=== PATIENT | male | born 1985 | race African-American/Black ===

== ENCOUNTER 2017-10-22 13:00 | Emergency (ER) | payer SELFPAY ==
[2017-10-22 13:18] VITALS: BP 140/90; PULSE 83; TEMP 98; BMI 26.4
[2017-10-22] MEDS ORDERED: ONDANSETRON 4 MG/2 ML VIAL IVPUSH ONE (13:50)
[2017-10-22] MEDS ORDERED: ACETAMINOPHEN 1000 MG/100 ML VIAL (NON FORMULARY) IVPB ONE (13:51)
[2017-10-22] MEDS ORDERED: FAMOTIDINE IV 20 MG/12 ML VIAL IVPB ONE (13:53)
--- NOTE | 2017-10-22 13:56 | PDOC ---
Attending Attestation - Resident Resident Name: Mary BethMando - HPI HPI: 10/22/17 14:15 Pt presents to the ED complaining of a one day history of nausea and vomiting. History of DM, HTN, ESRD on HD. Last HD was Sunday. Also complaining of vomiting with coffee grounds. Denies change in bowel movements. Pain is "like a ball" located between the chest and epigastrium. Denies fever, shortness of breath, passing out. - Physicial Exam PE: 10/22/17 14:23 Agree with resident exam. patient has diffuse tendernes in the abdomen to deep palpation. - Medical Decision Making 10/22/17 14:27 Pt presents to the ED complaining of diffuse chest and abdominal pain. Differential includes ACS, DKA, pancreatitis or biliary disease, gastroparesis, bleeding ulcer. Will check labs, EKG and CXR. Will check CT abdomen without contrast.
--- NOTE | 2017-10-22 14:05 | PDOC ---
History of Present Illness - General Chief Complaint: Vomiting Blood Stated Complaint: CHEST PAIN, VOMITING BLOOD Time Seen by Provider: 10/22/17 13:32 History Source: Patient Exam Limitations: No Limitations - History of Present Illness Initial Comments: 10/22/17 14:00 Patient is a 32M with history of ESRD (MWF, last dialysis F, due in 3.5 hours), IDDM, HTN, toe amputation here today complaining of chest pain, abdominal pain, and blood in his vomit. He states that this morning he had epigastric abdominal pain and chest pain first, then vomited several times. He states that he had a small amount of bright red blood and "balls of coffee ground emesis". Patient endorses chills, shortness of breath. He describes his chest pain as a stabbing pain with associated shortness of breath. He denies fevers, chills. Endorses headache. Denies sick contacts. Past History - Past Medical History Allergies/Adverse Reactions: Allergies Allergy/AdvReac Type Severity Reaction Status Date / Time No Known Allergies Allergy Verified 10/22/17 13:17 Home Medications: Ambulatory Orders Amlodipine Besylate [Norvasc -] 5 mg PO DAILY 10/22/17 Cholecalciferol (Vitamin D3) [Vitamin D3 -] 0 unit PO DAILY 10/22/17 Hydromorphone HCl [Dilaudid] 6 mg PO ASDIR 10/22/17 Insulin Lispro [Humalog] 0 unit SQ ASDIR 10/22/17 Lisinopril [Prinivil -] 40 mg PO DAILY 10/22/17 COPD: No Dialysis: Yes (mo, we,fr) HTN: Yes - Immunization History Immunization Up to Date: Yes - Suicide/Smoking/Psychosocial Hx Smoking History: Never smoked Hx Alcohol Use: No Drug/Substance Use Hx: No Review of Systems - Review of Systems Comments:: 10/22/17 15:26 GENERAL/CONSTITUTIONAL: No fever or chills. No weakness. HEAD, EYES, EARS, NOSE AND THROAT: No change in vision. No sore throat. CARDIOVASCULAR: Positive for chest pain and shortness of breath RESPIRATORY: No cough, wheezing, or hemoptysis. GASTROINTESTINAL: Positive for nausea, vomiting. GENITOURINARY: No dysuria, frequency, or change in urination. MUSCULOSKELETAL: No joint or muscle swelling or pain. No neck or back pain. SKIN: No rash NEUROLOGIC: Positive for headache. Negative for vertigo, loss of consciousness, or change in strength/sensation. HEMATOLOGIC/LYMPHATIC: No anemia, easy bleeding, or history of blood clots. ALLERGIC/IMMUNOLOGIC: No hives or skin allergy. *Physical Exam - Vital Signs Last Vital Signs Temp Pulse Resp BP Pulse Ox 98.0 F 83 20 140/90 100 10/22/17 13:14 10/22/17 13:14 10/22/17 13:14 10/22/17 13:14 10/22/17 13:14 - Physical Exam Comments: 10/22/17 15:32 GENERAL: Awake, alert, and fully oriented, patient observed walking comfortably into ED room, moving in bed. HEAD: No signs of trauma, normocephalic, atraumatic EYES: PERRLA, EOMI, sclera anicteric, conjunctiva clear ENT: Auricles normal inspection, hearing grossly normal, nares patent, oropharynx clear without exudates. Moist mucosa NECK: Normal ROM, supple, no lymphadenopathy, JVD, or masses LUNGS: No distress, speaks full sentences, clear to auscultation bilaterally HEART: Regular rate and rhythm, normal S1 and S2, no murmurs, rubs or gallops, peripheral pulses normal and equal bilaterally. ABDOMEN: Soft, patient writhing with light palpation. Positive for voluntary guarding, moving in bed. No masses EXTREMITIES: Normal inspection, Normal range of motion, no edema. No clubbing or cyanosis. NEUROLOGICAL: Cranial nerves II through XII grossly intact. Normal speech, normal gait, no focal sensorimotor deficits SKIN: Warm, Dry, normal turgor, no rashes or lesions noted. ED Treatment Course - LABORATORY CBC & Chemistry Diagram: 10/22/17 14:00 10/22/17 14:00 - RADIOLOGY Radiology Studies Ordered: Category Date Time Status CXRPORT [CHEST X-RAY PORTABLE*] [RAD] Stat Radiology 10/22/17 13:51 Ordered Medical Decision Making - Medical Decision Making 10/22/17 15:33 Patient is 32M with history of ESRD on MWF, HTN, DM here today with chest pain and abdominal pain. Vital signs stable and normal. Patient observed walking into room without difficulty, started writhing in bed when I approached bed. Rectal exam shows no manuela blood or masses. Patient's description of coffee ground emesis makes use of buzzword without appropriate description of coffee ground emesis. DDx includes, but is not limited to: malingering, GI bleed, kidney stone, pancreatitis. Will evaluate with abdominal labs, cxr, ekg, trop, abdominal/pelvis ct without contrast. After multiple attempts at IV, US guided IV, and EJ, unable to obtain access. Will treat with morphine and sl zofran. 10/22/17 15:36 Laboratory Tests 10/22/17 10/22/17 10/22/17 14:00 14:00 14:00 WBC 5.9 Hgb 8.2 L Hct 24.8 L Plt Count 277 Potassium 5.2 H Creatinine 13.1 H* Stool Occult Blood Negative CBC shows normocytic anemia, unknown baseline. K mildly elevated to 5.2. Stool for occult blood negative. Pending CT. 10/22/17 15:46 Laboratory Tests 10/22/17 14:00 Troponin I < 0.02 Troponin undetectable. 10/22/17 16:28 Laboratory Tests 10/22/17 14:00 Acetone, Qual Negative Acetone negative. 10/22/17 16:46 CT shows bilateral nephrolithiasis in kidneys, non obstructive. Not likely cause of pain. CXR shows cardiomegaly, no acute cardiopulmonary process. EKG shows normal sinus rhythm with rate of 83. No st elevation/depression. Normal NC/QRS/QTc intervals. Fidelia axis. 10/22/17 16:52 Patient reports his pain has improved, but is asking for pain medication before he goes to dialysis. Will discharge with return precautions. *DC/Admit/Observation/Transfer Diagnosis at time of Disposition: Abdominal pain - Discharge Dispostion Disposition: HOME Condition at time of disposition: Good Admit: No - Referrals - Patient Instructions Printed Discharge Instructions: DI for Abdominal Pain-Adult Additional Instructions: Please return if you have any new, worsening or concerning symptoms. Please follow up with your primary care doctor. If you do not have one, a primary care doctor's number has been provided for you. - Post Discharge Activity
[2017-10-22 14:30] LABS: EOS % 3.9 % (0-4.5); HEMATOCRIT 24.8 % (35.4-49); HEMOGLOBIN 8.2 GM/dL (11.7-16.9); MCH 30.7 pg (25.7-33.7); MEAN CELL VOLUME 93.1 fl (80-96); MEAN PLT VOLUME 7.4 fl (7.5-11.1); MONO % 8.4 % (3.8-10.2); NEUT % 67.7 % (42.8-82.8); PLATELET COUNT 277 K/MM3 (134-434); RBC 2.66 M/mm3 (4.00-5.60); RDW 14.9 % (11.9-15.9); WHITE BLOOD COUNT 5.9 K/mm3 (4.0-10.0)
[2017-10-22 14:56] LABS: ALBUMIN 3.2 g/dl (3.4-5.0); ANION GAP 10 (8-16); BLOOD UREA NITROGEN 46 mg/dL (7-18); CALCIUM 8.2 mg/dL (8.5-10.1); CHLORIDE 105 mmol/L (98-107); CO2 22 mmol/L (21-32); GLUCOSE,RANDOM 119 mg/dL (74-106); LIPASE 184 U/L (73-393); POTASSIUM 5.2 mmol/L (3.5-5.1); SGOT/AST 21 U/L (15-37); SGPT/ALT 19 U/L (12-78); SODIUM 137 mmol/L (136-145)
[2017-10-22] MEDS ORDERED: FAMOTIDINE 20 MG/50 ML IVPB 20 MG/50 ML MG IVPB ONE (15:00)
[2017-10-22] MEDS ORDERED: ONDANSETRON 4 MG/2 ML VIAL ONE (15:00)
[2017-10-22] MEDS ORDERED: ACETAMINOPHEN INJECTION 100 ML IVPB ONE (15:00)
[2017-10-22 15:06] LABS: ALK PHOS 118 U/L (45-117); BILIRUBIN,TOTAL 0.3 mg/dL (0.2-1.0); TOT PROT 7.4 g/dl (6.4-8.2)
[2017-10-22 15:13] LABS: CREATININE 13.1 mg/dL (0.7-1.3)
[2017-10-22] MEDS ORDERED: morphine CARPU-JECT 2 MG/1 ML DISP.SYRIN IM ONE ×2 (15:20→16:51)
[2017-10-22] MEDS ORDERED: ONDANSETRON *ODT* 4 MG TABLET SL ONE (15:20)
[2017-10-22] MEDS ORDERED: morphine SULFATE 4 MG/ML VIAL ONE ×3 (15:24→17:07)
[2017-10-22] MEDS ORDERED: ONDANSETRON 8 MG TABLET (FP) PO ONE (15:25)
--- NOTE | 2017-10-23 10:10 | EKG ---
Test Reason : Blood Pressure : / mmHG Vent. Rate : 083 BPM Atrial Rate : 083 BPM P-R Int : 166 ms QRS Dur : 090 ms QT Int : 368 ms P-R-T Axes : 060 030 061 degrees QTc Int : 432 ms NORMAL SINUS RHYTHM MINIMAL VOLTAGE CRITERIA FOR LVH, MAY BE NORMAL VARIANT BORDERLINE ECG NO PREVIOUS ECGS AVAILABLE Confirmed by Varun Chou MD ([id number]) on 10/23/2017 10:10:49 AM Referred By: Confirmed By:Varun Chou MD
== END 2017-10-22 17:12 | disposition home or self-care (01) ==
LOC: JER 13:00
PROC: 3E0233Z Introduction of Anti-inflammatory into Muscle, Percutaneous Approach (ICD-10-PCS; principal; 2017-10-22)
PROC: 3E0233Z Introduction of Anti-inflammatory into Muscle, Percutaneous Approach (ICD-10-PCS; 2017-10-22)
DX: R10.84 Generalized abdominal pain (principal); I12.0 Hypertensive chronic kidney disease with stage 5 chronic kidney disease or end stage renal disease; E11.22 Type 2 diabetes mellitus with diabetic chronic kidney disease; N18.6 End stage renal disease; N17.8 Other acute kidney failure; Z99.2 Dependence on renal dialysis; Z79.4 Long term (current) use of insulin
CPT/HCPCS: 36415; 71045-TC-FY; 74176-TC; 80053; 82009; 82272; 82550; 82553; 83690; 84484; 85025; 93005; 93010; 99283-25; Q0162